=== PATIENT | male | born 1985 | race Caucasian/White ===

== ENCOUNTER 2021-07-26 14:20 | Emergency (ER) | payer OTHER ==
[2021-07-26 15:12] LABS: BASOPHIL 0.5 % (0-2); EOSINOPHIL 0.8 % (0-5); HCT 48.2 % (42.0-52.0); HGB 16.8 g/dl (13.2-18.0); LYMPHOCYTE 29.5 % (15-48); MCH 33.3 pg (25.0-31.0); MCHC 34.9 g/dL (32.0-36.0); MCV 95.6 fL (78.0-100.0); MONOCYTE 7.4 % (0-12); MPV 11.2 fL (6.0-9.5); NEUTROPHIL 61.5 % (41-80); NRBC 0; PLT 181 K/uL (150-400); RBC 5.04 M/uL (4.70-6.00); RDW 12.4 % (11.5-14.0); WBC 6.7 K/uL (4.0-10.5)
[2021-07-26 15:35] LABS: ALBUMIN 4.4 g/dL (3.4-5.0); BILIRUBIN - TOTAL 0.8 mg/dL (0.2-1.0); BUN/CREAT RATIO (CALC) 12.6 RATIO; CREATININE 0.95 mg/dL (0.67-1.17); GLOBULIN (CALCULATION) 3.6 g/dL; POTASSIUM 4.1 mmol/L (3.5-5.1)
== END 2021-07-26 17:02 | disposition home or self-care (01) ==
LOC: FER 14:20
PROVIDERS: Nurse Practitioner Family
DX: R07.89 Other chest pain (principal); R05.9 Cough, unspecified
CPT/HCPCS: 36415; 71046; 80053; 84484; 85025; 93005

== ENCOUNTER 2022-03-22 21:21 | Emergency (ER) | payer OTHER ==
[2022-03-22 22:00] LABS: BASOPHIL 0.4 % (0-2); EOSINOPHIL 0.9 % (0-5); HCT 45.3 % (42.0-52.0); HGB 16.4 g/dl (13.2-18.0); LYMPHOCYTE 38.2 % (15-48); MCH 33.5 pg (25.0-31.0); MCHC 36.2 g/dL (32.0-36.0); MCV 92.6 fL (78.0-100.0); MONOCYTE 7.3 % (0-12); MPV 11.2 fL (6.0-9.5); NEUTROPHIL 52.9 % (41-80); NRBC 0; PLT 163 K/uL (150-400); RBC 4.89 M/uL (4.70-6.00); WBC 6.8 K/uL (4.0-10.5)
[2022-03-22 22:20] LABS: ALBUMIN 4.3 g/dL (3.4-5.0); BUN/CREAT RATIO (CALC) 12.3 RATIO; CREATININE 1.06 mg/dL (0.67-1.17); GLOBULIN (CALCULATION) 3.3 g/dL; POTASSIUM 3.7 mmol/L (3.5-5.1); TOTAL PROTEIN 7.6 g/dL (6.4-8.2)
[2022-03-22 23:26] LABS: CORONAVIRUS 2019 SARS-COV-2 NEGATIVE (NEGATIVE); INFLUENZA A NAA NEGATIVE (NEGATIVE)
== END 2022-03-22 23:54 | disposition home or self-care (01) ==
LOC: FER 21:21
PROVIDERS: Internal Medicine
DX: R07.89 Other chest pain (principal); Z20.822 Contact with and (suspected) exposure to COVID-19
CPT/HCPCS: 36415; 71045; 80053; 84484; 85025; 85379; 93005; U0002